=== PATIENT | male | born 1975 | race Two or more races ===

== ENCOUNTER 2025-02-27 07:00 | Day surgery (SDC) | payer OTHER ==
[2025-02-27] MEDS ORDERED: FLUMAZENIL 0.5 MG/5 ML ML IV STA (08:26)
[2025-02-27] MEDS ORDERED: fentaNYL CITRATE 50 MCG/ML AMPUL IV PUSH ONE (08:30)
[2025-02-27] MEDS ORDERED: DIPHENHYDRAMINE HCL 50 MG/ML VIAL 1ML IV ONE (08:30)
[2025-02-27] MEDS ORDERED: MIDAZOLAM HCL 2 MG/2 ML VIAL IV ONE (08:30)
== END 2025-02-27 09:35 | disposition home or self-care (01) ==
LOC: AMB-ENDOS 07:00
PROVIDERS: ATTEND Colon & Rectal Surgery
DX: D12.2 Benign neoplasm of ascending colon (principal); K63.5 Polyp of colon; K57.30 Diverticulosis of large intestine without perforation or abscess without bleeding; Z12.11 Encounter for screening for malignant neoplasm of colon; K62.5 Hemorrhage of anus and rectum; Z88.0 Allergy status to penicillin